=== PATIENT | male | born 1965 | race Caucasian/White ===

== ENCOUNTER → 2017-07-29 | Outpatient (CLI) | payer BC ==
--- NOTE | 2017-07-29 09:02 | US ---
EXAMINATION TYPE: US abdomen complete DATE OF EXAM: 07/29/2017 COMPARISON: NONE CLINICAL HISTORY: R10.13 epigastric pain. EXAM MEASUREMENTS: Liver Length: 14.0 cm Gallbladder Wall: 0.3 cm CBD: 0.2 cm Spleen: 9.6 cm Right Kidney: 11.5 x 6.0 x 5.7 cm Left Kidney: 11.9 x 5.9 x 5.9 cm Patient of large body habitus carry weight in abdomen. Pancreas: Obscured by bowel gas Liver: mild increased attenuation Gallbladder: No shadowing stones. No evidence for sonographic Diaz's sign CBD: wnl Spleen: wnl Right Kidney: No hydronephrosis or masses seen Left Kidney: No hydronephrosis or masses seen Upper IVC: wnl Abd Aorta: mostly obscured by overlying bowel gas, mid portions appears wnl The visualized liver is heterogeneously hyperechoic. Evaluation for focal masses suboptimal due to th e heterogeneity. The intrahepatic portion of the IVC and proximal abdominal aorta are within normal l imits. There is no evidence of shadowing mobile cholelithiasis. Common bile duct is unremarkable. The visualized portions of the pancreas are homogenous. The spleen is unremarkable. Kidneys are sym metric and free of hydronephrosis. No renal lesions are seen. IMPRESSION: Suboptimal study. No shadowing mobile gallstones. Probable fatty infiltration of liver no [place]ick.
--- NOTE | 2017-07-29 12:35 | FL ---
EXAMINATION TYPE: FL UGI air w esophagus DATE OF EXAM: 07/29/2017 COMPARISON: NONE HISTORY: Epigastric pain bloating and belching TECHNIQUE: A single/double contrast UGI study is performed. FINDINGS: Spray Booth Operator image of the abdomen shows no gross abnormality. The esophagus shows normal motility and emptying into the stomach. No evidence of hiatal hernia or s tricture noted. Note is made of some gastroesophageal reflux on overhead radiographs. The stomach shows normal distensibility, peristalsis, and mucosal folds. No evidence of any mass or ulcer disease. There is complete stripping of the esophageal bolus in the horizontal drinking positio n. Some mild presbyesophagus is present with tertiary contractions present. The duodenal bulb, sweep, and proximal small bowel loops are unremarkable. 1 minute 49 seconds of fluoroscopy time was provided for the procedure. 45 images were obtained. IMPRESSION: 1. Mild gastroesophageal reflux. 2. Mild presbyesophagus.
== END | disposition home or self-care (01) ==
LOC: RADUSMAIN 07:45
PROVIDERS: ATTEND Family Medicine
DX: K21.9 Gastro-esophageal reflux disease without esophagitis (principal); K22.8 Other specified diseases of esophagus
CPT/HCPCS: 74246; 76700

== ENCOUNTER 2018-07-26 07:56 | Day surgery (SDC) | payer BC ==
[2018-07-22 16:19] VITALS: BMI 38.4
[~2018-07-26 07:56] MED LIST: DEXAMETHASONE SOD PHOSPHATE 10 MG/ML 1 ML VIAL IV ONE; HEPARIN SODIUM,PORCINE 5,000 UNIT/ML 1 ML VIAL SQ ONE; LIDOCAINE 1% 20 ML VIAL (10MG/ML) FOR IV START INTRADERMA PRN; MIDAZOLAM (PF) 2 MG/2 ML VIAL IV PRN; fentaNYL (PF) 50 MCG/ML 2 ML AMP IV PRN
--- NOTE | 2018-07-26 08:52 | P.GSHP ---
History of Present Illness H&P Date: 07/26/18 Chief Complaint: Left inguinal hernia This a 52-year-old male who presents today for laparoscopic robotic system repair of left inguinal hernia. Patient has complaints of a left groin mass. Past Medical History Past Medical History: Hypertension Additional Past Medical History / Comment(s): Hx-PVC's, bicupsid aortic valve. seasonal allergies History of Any Multi-Drug Resistant Organisms: None Reported Past Surgical History: No Surgical Hx Reported Additional Past Surgical History / Comment(s): endoscopy Past Anesthesia/Blood Transfusion Reactions: No Reported Reaction Smoking Status: Never smoker - Past Family History Mother Family Medical History: No Reported History Medications and Allergies Home Medications Medication Instructions Recorded Confirmed Type Aspirin [Adult Low Dose Aspirin EC] 81 mg PO DAILY 07/22/18 07/22/18 History Atenolol [Tenormin] 50 mg PO DAILY 07/22/18 07/26/18 History Allergies Allergy/AdvReac Type Severity Reaction Status Date / Time Penicillins Allergy Unknown Verified 07/22/18 16:06 Surgical - Exam Vital Signs Temp Pulse Resp BP Pulse Ox 98.4 F 66 16 132/72 97 07/26/18 08:37 07/26/18 08:37 07/26/18 08:37 07/26/18 08:37 07/26/18 08:37 - General well developed, well nourished, no distress - Eyes PERRL - ENT normal pinna - Neck no masses - Respiratory normal expansion - Cardiovascular Rhythm: regular - Abdomen Abdomen: soft, non tender Assessment and Plan Assessment: Left and one hernia. We'll perform laparoscopic robotic-assisted repair.
[2018-07-26] MEDS: LACTATED RINGERS 1,000 ML IV SCH ×2 (09:04→09:05)
[2018-07-26] MEDS ORDERED: ONDANSETRON 4 MG/2 ML VIAL IVP ONE (09:06)
[2018-07-26] MEDS ORDERED: LIDOCAINE 1% INJ 10MG/ML (20 ML MDV) ONE (09:18)
[2018-07-26] MEDS ORDERED: SUCCINYLCHOLINE CHLORIDE 100 MG/5 ML SYR IV ONE (09:18)
[2018-07-26] MEDS ORDERED: NEOSTIGMINE 1 MG/ML 10 ML VIAL ONE (09:18)
[2018-07-26] MEDS ORDERED: fentaNYL (PF) 50 MCG/ML 2 ML AMP ONE (09:18)
[2018-07-26] MEDS ORDERED: ROCURONIUM BROMIDE 10 MG/ML 10 ML VIAL IV ONE (09:18)
[2018-07-26] MEDS ORDERED: PROPOFOL 10 MG/ML 20 ML VIAL IV ONE (09:18)
[2018-07-26] MEDS ORDERED: ePHEDrine SULFATE/0.9% NACL/PF 50 MG/5 ML SYRINGE IV ONE (09:18)
[2018-07-26] MEDS ORDERED: GLYCOPYRROLATE 0.2 MG/ML 2 ML VIAL ONE (09:18)
[2018-07-26] MEDS ORDERED: KETOROLAC 30 MG/ML 1 ML VIAL ONE (09:18)
[2018-07-26] MEDS ORDERED: BUPIVACAIN-EPI 0.5%-1:200,000 30 ML VIAL SQ ONE (09:44)
--- NOTE | 2018-07-26 10:36 | P.OP ---
Date of Procedure: 07/26/18 Preoperative Diagnosis: Left inguinal hernia Postoperative Diagnosis: Left inguinal hernia Cord lipoma Procedure(s) Performed: Laparoscopic robotic-assisted repair of left inguinal hernia Excision of left cord lipoma Anesthesia: INDU Surgeon: Torey Simpson Estimated Blood Loss (ml): 5 Pathology: other (Cord lipoma) Condition: stable Disposition: PACU Description of Procedure: The patient was placed on the operating table in the supine position. The patient received general anesthesia. The patient's abdomen was prepped and draped in usual sterile fashion. The skin was anesthetized 1% local Xylocaine at the incision sites. Using an 11 blade a skin incision was made at the umbilicus. The fascia was grasped with a [place] and then the peritoneal cavity was entered with the Veress needle. Position of the Veress needle was confirmed with a positive drop test. After adequate insufflation a 5 mm trocar was placed into the peritoneal cavity. The Laparoscope was placed the peritoneal cavity. And a robotic 8 mm trocar was placed in the right lateral position and then another 8 mm robotic trochars placed in the left lateral position. The original 5 mm trocar was exchanged for a 12 mm trocar. The patient was placed in reverse Trendelenburg and then the patient was docked to the robot. Next the peritoneum over top of the hernia was incised and then using blunt and sharp dissection and electrocautery the hernia sac was dissected free from the floor of the inguinal canal. The hernia sac was completely reduced into the peritoneal cavity. A cord lipoma was dissected from the cord. And then using the Pro reed man mesh the hernia was repaired. The peritoneum was then sutured with 2-0V lock suture. The patient was then undocked the robot. The needle was withdrawn from the peritoneal cavity. The cord lipoma was retrieved. The umbilical trocar site was closed with 0 Ethibond suture. The skin was closed interrupted 3-0 Monocryl suture. Dermabond dressing was applied. Patient was sent to recovery in stable condition.
[2018-07-26 10:40] VITALS: TEMP 98.3
[2018-07-26 10:48] VITALS: RESP 16
[2018-07-26 11:52] VITALS: BP 134/81; PULSE 62
== END 2018-07-26 12:21 | disposition home or self-care (01) ==
LOC: OR 07:56
PROVIDERS: ATTEND Surgery
DX: K40.90 Unilateral inguinal hernia, without obstruction or gangrene, not specified as recurrent (principal); I10 Essential (primary) hypertension; D17.6 Benign lipomatous neoplasm of spermatic cord; Q23.1 Congenital insufficiency of aortic valve; Z79.82 Long term (current) use of aspirin; Z88.0 Allergy status to penicillin; Z79.899 Other long term (current) drug therapy
CPT/HCPCS: 88304; 49650; C1781; J1644; J1100; J2710; J0690; J2405; J2001; J3010; J1885; J0330; J2704; J2250